=== PATIENT | male | born 1965 | race Caucasian/White ===

== ENCOUNTER 2020-10-10 20:46 | Emergency (ER) | payer OTHER ==
[2020-10-10] MEDS ORDERED: CYCLOBENZAPRINE10 MG PO (21:54)
[2020-10-10] MEDS ORDERED: IBUPROFEN800 MG PO (21:54)
== END 2020-10-10 22:10 | disposition home or self-care (01) ==
LOC: ER1 20:46
DX: S16.1XXA Strain of muscle, fascia and tendon at neck level, initial encounter (principal); S39.012A Strain of muscle, fascia and tendon of lower back, initial encounter; V49.40XA Driver injured in collision with unspecified motor vehicles in traffic accident, initial encounter; Y92.410 Unspecified street and highway as the place of occurrence of the external cause
CPT/HCPCS: 70450; 71045; 72125; 72128; 72131; 72170; 99284

== ENCOUNTER 2020-10-11 19:13 | Emergency (ER) | payer OTHER ==
[~2020-10-11 19:13] MED LIST: CYCLOBENZAPRINE10 MG PO; IBUPROFEN800 MG PO
[2020-10-11 21:41] LABS: HEMOGLOBIN 15.6 gm/dl (14.0-17.5); RED BLOOD COUNT 5.22 M/UL (4.20-5.50); WHITE BLOOD COUNT 8.5 K/UL (4.5-11.0)
[2020-10-11 21:57] LABS: BUN/CREATININE RATIO 18 (0-10)
== END 2020-10-11 23:18 | disposition home or self-care (01) ==
LOC: ER1 19:13
PROVIDERS: Physician Assistant
DX: R10.31 Right lower quadrant pain (principal); R10.32 Left lower quadrant pain; R10.817 Generalized abdominal tenderness; V49.40XA Driver injured in collision with unspecified motor vehicles in traffic accident, initial encounter; Y92.410 Unspecified street and highway as the place of occurrence of the external cause
CPT/HCPCS: 80053; 81001; 85025; 99284; Q9967

== ENCOUNTER → 2021-08-31 | Outpatient (CLI) | payer BC ==
[2021-08-31 08:56] LABS: HEMOGLOBIN 15.3 gm/dl (14.0-17.5); RED BLOOD COUNT 5.13 M/UL (4.20-5.50); WHITE BLOOD COUNT 4.9 K/UL (4.5-11.0)
[2021-08-31 09:11] LABS: BUN/CREATININE RATIO 17 (0-10)
[2021-09-01 07:12] LABS: VITAMIN D, 25-HYDROXY 17.8 ng/mL (30.0-100.0)
[2021-09-01 08:16] LABS: THYROXINE (T4) 6.1 ug/dL (4.5-12.0)
== END ==
LOC: LAB 08:28
PROVIDERS: Nurse Practitioner Family
DX: K76.0 Fatty (change of) liver, not elsewhere classified (principal); K21.9 Gastro-esophageal reflux disease without esophagitis; I10 Essential (primary) hypertension; Z13.1 Encounter for screening for diabetes mellitus; R53.83 Other fatigue; Z12.5 Encounter for screening for malignant neoplasm of prostate
CPT/HCPCS: 36415; 80053; 80061; 83036; 84153; 84436; 84443; 84480; 85025